=== PATIENT | female | born 1970 | race Caucasian/White ===

== ENCOUNTER 2023-05-02 10:50 | Emergency (ER) | payer OTHER, SELFPAY ==
[2023-05-02 10:56] VITALS: BP 138/71; PULSE 73; RESP 20; TEMP 36.9; O2SAT 96; BMI 58.4
--- NOTE | 2023-05-02 11:08 | PC.NURSE ---
pt wears 2L of O2 at all times. pt arrived to er with her own O2. pt was placed on 2L with wall O2 in er
--- NOTE | 2023-05-02 11:16 | CT_ITS ---
The [address] [address] Patient Name: AVERY POND MRN: [id number] date: 1970 Sex: F Assigned Patient Location: ER Current Patient Location: Accession/Order Number: [id number] Exam Date: 05/02/2023 12:10 Report Date: 05/02/2023 14:12 At the request of: COLE WYNNE Procedure: CT abdomen pelvis w con EXAM: CT abdomen pelvis w con - 05/02/2023. COMPARISON STUDY: CT of the chest with contrast 07/16/2017. HISTORY: gi bleed TECHNIQUE: 3 mm sections were obtained from the lung bases through the pubic symphysis following the administration of intravenous contrast. Coronal and sagittal reconstructed images were obtained. CT ABDOMEN: The patient is morbidly obese. The lower cardiac chambers, posterior mediastinal structures and lung bases demonstrate no acute abnormality. Background diffuse hepatic steatosis is identified. The right hepatic lobe measures 19.4 cm superior to inferior. The gallbladder is surgically absent. Liver, spleen, pancreas, adrenal glands and kidneys demonstrate no acute abnormality. Mild atherosclerotic change of the aorta and its branches without aneurysm or dissection. CT PELVIS: There is atrophy of the pelvic floor musculature with pelvic floor relaxation. Urinary bladder is nearly completely collapsed. Uterus and ovaries are not seen. Chronic fibrofatty changes associated with portions of the large bowel including both colon and rectum are noted. Subcentimeter radiopaque focus within the lumen of the rectum is seen caudally on image #141 of series 3. There are a few scattered colonic diverticula. There is high attenuation debris within the more proximal colon also noted. Bowel pattern is nonobstructive. Chronic fibrofatty mural changes of the distal ileal and terminal ileal segments noted. Tiny umbilical hernia contains fat without bowel. Hepatic, portal, splenic and mesenteric veins are patent. Angulated collapsed small bowel segments within the lower abdomen and pelvis are noted. Small nonenlarged noncalcified retroperitoneal and pelvic nodes are identified incidentally. Significant multilevel lower thoracic and lumbar spondylitic/facet arthritic changes are identified. Facet disease is most apparent at the L4 level. Multilevel lumbar canal stenosis is suggested. No acute osseous abnormality. IMPRESSION: 1. Mild chronic fibrofatty mural changes associated with the distal/terminal ileum as well as large bowel may be indicative of prior episodes of inflammatory bowel disease. 2. Angulated collapsed small bowel segments about the lower abdomen and pelvis may be indicative of intraperitoneal adhesions. No evidence of appendicitis, diverticulitis, bowel obstruction or acute inflammatory bowel disease otherwise. 3. Prior cholecystectomy and hysterectomy. 4. Hepatomegaly with background hepatic steatosis. 5. There is atrophy of the pelvic floor musculature with pelvic floor relaxation. Electronically authenticated by: ALEXA HARPER Date: 05/02/2023 14:12
--- NOTE | 2023-05-02 11:30 | ED.GENADUL1 ---
HPI - General Adult General Chief complaint: Abdominal Pain Stated complaint: Diarrhea Time Seen by Provider: 05/02/23 11:15 Source: patient Mode of arrival: Wheelchair History of Present Illness HPI narrative: patient presents with nausea, mid upper abdominal pain and diarrhea along with decreased appetite and decreased oral intake. No flank pain or urinary symptoms. No fever or chills. She wears oxygen daily. She apparently was evaluated at [facility] last week for chest pain and shortness of breath. She said that she was admitted overnight and then discharged the next day. She said that despite having history of COPD and pulmonary embolism they did not get a cxr or ct scan of the chest. She also said that she had these GI symptoms during admission and they did not prescribe any nausea meds for her at discharge. Related Data Home Medications Medication Instructions Recorded Confirmed apixaban 5 mg (74 tabs) tablets in 5 mg PO BID 05/02/23 05/02/23 a dose pack (Tellme DVT-PE Treat 30D Start) aspirin 81 mg tablet,delayed 81 mg PO DAILY 05/02/23 05/02/23 release budesonide-formoterol HFA 80 2 puff inhalation DAILY 05/02/23 05/02/23 mcg-4.5 mcg/actuation aerosol inhaler (Symbicort) carvedilol 6.25 mg tablet 6.25 mg PO DAILY 05/02/23 05/02/23 ergocalciferol (vitamin D2) 1,250 1,250 mcg PO .weekly 05/02/23 05/02/23 mcg (50,000 unit) capsule furosemide 20 mg tablet 40 mg PO QAM 05/02/23 05/02/23 gabapentin 300 mg capsule 300 mg PO TID 05/02/23 05/02/23 lamotrigine 200 mg tablet 200 mg PO DAILY 05/02/23 05/02/23 levothyroxine 100 mcg tablet 100 mcg PO DAILY 05/02/23 05/02/23 melatonin 5 mg tablet 5 mg PO QPM PRN sleep 05/02/23 05/02/23 quetiapine 200 mg tablet 200 mg PO DAILY 05/02/23 05/02/23 sertraline 100 mg tablet 100 mg PO DAILY 05/02/23 05/02/23 simvastatin 20 mg tablet 20 mg PO QPM 05/02/23 05/02/23 spironolactone 50 mg tablet 50 mg PO DAILY 05/02/23 05/02/23 tizanidine 4 mg tablet 8 mg PO QPM 05/02/23 05/02/23 zonisamide 100 mg capsule 100 mg PO BID 05/02/23 05/02/23 Previous Rx's Medication Instructions Recorded hyoscyamine sulfate 0.125 mg 0.125 mg PO Q6H PRN abdominal pain 05/02/23 sublingual tablet (Levsin/SL) #20 tabs ondansetron 4 mg disintegrating 4 mg PO Q6H PRN nausea and 05/02/23 tablet vomiting #20 tabs Allergies Allergy/AdvReac Type Severity Reaction Status Date / Time No Known Drug Allergies Allergy Verified 05/02/23 10:56 [facility] Medical History (Updated 05/02/23 @ 13:31 by Aaron Wynne) Exam Narrative Exam Narrative: Nurses notes and vital signs reviewed and patient is not hypoxic. afebrile General: Well-appearing and in no apparent distress. Skin: Warm, dry, no pallor noted. No rash. Head: Normocephalic, atraumatic. Neck: Supple, non-tender. no meningismus Eye: Pupils are equal, round and EOMI. No scleral icterus. Ears, Nose, Mouth, and Throat: Oral mucosa is dry Cardiovascular: Regular Rate and Rhythm without murmur, gallop or rub. Respiratory: No accessory muscle use or respiratory distress. Lungs are clear to auscultation, no wheezing, rales or rhonchi Chest Wall: no tenderness Back: No CVA tenderness Musculoskeletal: normal ROM, no calf or popliteal tenderness, no lower extremity edema/swelling GI: Abdomen is soft, non-distended. Normal bowel sounds. morbidly obese so I cannot appreciate masses on palpation. No areas tenderness to palpation despite localizing pain to the epigastrium. No rebound, guarding, or rigidity noted. Neurological: A&O x4. No cranial nerve dysfunction observed. No truncal ataxia. Moves all extremities. Sensation intact. Psychiatric: Cooperative and interactive. Normal mood and affect. Constitutional Vital Signs - 24 hr 05/02/23 10:56 05/02/23 11:03 Temperature 98.4 F Pulse Rate [Monitor] 73 Respiratory Rate 20 Blood Pressure [Left Arm] 138/71 H Pulse Oximetry 96 Oxygen Delivery Method Room Air Nasal Cannula Oxygen Delivery Flow Rate 2 Course Vital Signs Vital signs: Vital Signs Temperature 98.4 F 05/02/23 10:56 Pulse Rate 73 05/02/23 10:56 Respiratory Rate 20 05/02/23 10:56 Blood Pressure 138/71 H 05/02/23 10:56 Pulse Oximetry 96 05/02/23 10:56 Oxygen Delivery Method Room Air 05/02/23 10:56 Temperature 98.4 F 05/02/23 10:56 Pulse Rate 73 05/02/23 10:56 Respiratory Rate 20 05/02/23 10:56 Blood Pressure 138/71 H 05/02/23 10:56 Pulse Oximetry 96 05/02/23 10:56 Oxygen Delivery Method Nasal Cannula 05/02/23 11:03 Oxygen Delivery Flow Rate 2 05/02/23 11:03 Medical Decision Making MDM Narrative Medical decision making narrative: peripheral IV established and blood drawn and sent for testing. Patient was ordered to undergo CT scanning of the abdomen pelvis. She was given normal saline IV fluid, IV Zofran, IV Protonix. I also received a copy of the patient's discharge summary from her visit certificate emergency department and subsequent hospitalization earlier this week. at [facility], the patient had blood testing, EKG, chest x-ray and noncontrast head CT. Her workup was negative and they identified her symptoms as secondary to hypotension from multiple medications that were similarly. They apparently talked her about adjusting her medications and dosing. In our emergency department, the patient had a normal CBC and CMP. Her CT scan of the abdomen pelvis with IV contrast identified inflammatory changes but no obstruction, abscess or other intra-abdominal pathology requiring hospitalization. The patient and were informed of the results, diagnosis and plan for out-patient treatment. She was discharged home with prescriptions for zofran, Levsin and isntructions to maintain a clear liquid diet until her symptoms resolved. She will see her PCP for follow up. Lab Data Lab results reviewed: Yes I reviewed the patient's lab results Labs: Lab Results 05/02/23 05/02/23 Range/Units 11:38 11:48 WBC 11.3 H (4.0-11.0) 10^3/uL RBC 3.71 L (4.20-5.40) 10^6/uL Hgb 11.8 L (12.0-16.0) g/dL Hct 36.2 (36.0-48.0) % MCV 97.6 (81.0-99.0) fL MCH 31.8 (26.7-34.0) pg MCHC 32.6 (29.9-35.2) g/dL RDW 13.5 (11.0-15.0) % Plt Count 352 (150-450) 10^3/uL MPV 9.5 (9.5-13.5) fL Seg Neuts % (Manual) 77.0 Lymphocytes % (Manual) 9.0 L (20.5-60.0) % Monocytes % (Manual) 11.0 (1.7-12.0) % Eosinophils % (Manual) 3.0 (0.9-7.0) % Basophils % (Manual) 0.0 L (0.2-2.0) % Neutrophils # (Manual) 8.70 H (1.4-6.5) 10^3/uL Lymphocytes # (Manual) 1.01 L (1.20-3.80) 10^3/uL Monocytes # (Manual) 1.24 H (0.30-0.80) 10^3/uL Eosinophils # (Manual) 0.33 (0.00-0.70) 10^3/uL Basophils # (Manual) 0.00 (0.00-0.10) 10^3/uL Nucleated RBCs 0 Sodium 141 (136-145) mmol/L Potassium 3.5 (3.5-5.1) mmol/L Chloride 101 (98-107) mmol/L Carbon Dioxide 25.4 (21.0-32.0) mmol/L Anion Gap 18.1 BUN 19.0 H (7.0-18.0) mg/dL Creatinine 2.87 H (0.55-1.02) mg/dL Est GFR ( Amer) 21 L (>=60) Est GFR (Non-Af Amer) 17 L (>=60) BUN/Creatinine Ratio 6.6 Glucose 117 H (74-106) mg/dL Calcium 9.5 (8.5-10.1) mg/dL Total Bilirubin 0.5 (0.2-1.0) mg/dL AST 29 (15-37) U/L ALT 49 (14-59) U/L Alkaline Phosphatase 104 (46-116) U/L Total Protein 9.4 H (6.4-8.2) g/dL Albumin 4.4 (3.4-5.0) g/dL Globulin 5.0 g/dL Albumin/Globulin Ratio 0.[address] abd/pelvis: Attestation: I have reviewed the pertinent imaging results. Radiologist's impression: Patient: Nancy Pond MR#: [id number] : 1970 Acct:[id number] Age/Sex: 52 / F ADM Date: 05/02/23 Loc: ER Attending Dr: Ordering Physician: Aaron Wynne D.O. Date of Service: 05/02/23 Procedure(s): CT abdomen pelvis w con Accession Number(s): [id number] cc: ~ ? [facility] ?? ? [address] [place] [address] ?? ? [place] [address] ? Patient Name: NANCY POND ? MRN: [id number]? ? date: 1970? ? Sex: F Assigned Patient Location: ER Current Patient Location: ED.MAIN Accession/Order Number: [id number] Exam Date: 05/02/2023? 12:10? ? Report Date: 05/02/2023? 13:17 ? At the request of: ANTONIO WYNNE? ? Procedure:? CT abdomen pelvis w con ? Initial impression only. ? IMPRESSION: 1. Mild chronic fibrofatty mural changes associated with the distal/terminal ileum as well as large bowel may be indicative of prior episodes of inflammatory bowel disease. 2. Angulated collapsed small bowel segments about the lower abdomen and pelvis may be indicative of intraperitoneal adhesions. No evidence of appendicitis, diverticulitis, bowel obstruction or acute inflammatory bowel disease otherwise. 3. prior cholecystectomy and hysterectomy. 4. Hepatomegaly with background hepatic steatosis. 5. There is atrophy of the pelvic floor musculature with pelvic floor relaxation. ? ? Electronically authenticated by: ESTELA HARPER ? Date: 05/02/2023? 13:17 Discharge Plan Discharge Chief Complaint: Abdominal Pain Clinical Impression: Abdominal pain Patient Disposition: Home, Self-Care Time of Disposition Decision: 13:31 Prescriptions / Home Meds: New hyoscyamine sulfate [Levsin/SL] 0.125 mg tablet, sublingual 0.125 mg PO Q6H PRN (Reason: abdominal pain) Qty: 20 0RF ondansetron 4 mg tablet,disintegrating 4 mg PO Q6H PRN (Reason: nausea and vomiting) Qty: 20 0RF No Action Eliquis DVT-PE Treat 30D Start 5 mg (74 tabs) tablets,dose pack 5 mg PO BID aspirin 81 mg tablet,delayed release (DR/EC) 81 mg PO DAILY budesonide-formoterol [Symbicort] 80-4.5 mcg/actuation HFA aerosol inhaler 2 puff INHALATION DAILY carvedilol 6.25 mg tablet 6.25 mg PO DAILY ergocalciferol (vitamin D2) 1,250 mcg (50,000 unit) capsule 1,250 mcg PO .weekly furosemide 20 mg tablet 40 mg PO QAM gabapentin 300 mg capsule 300 mg PO TID lamotrigine 200 mg tablet 200 mg PO DAILY levothyroxine 100 mcg tablet 100 mcg PO DAILY melatonin 5 mg tablet 5 mg PO QPM PRN (Reason: sleep) quetiapine 200 mg tablet 200 mg PO DAILY sertraline 100 mg tablet 100 mg PO DAILY simvastatin 20 mg tablet 20 mg PO QPM spironolactone 50 mg tablet 50 mg PO DAILY tizanidine 4 mg tablet 8 mg PO QPM zonisamide 100 mg capsule 100 mg PO BID Instructions: Abdominal Pain (ED) Stand Alone Forms: Portal Instructions Referrals: Denilson Carballo MD [Primary Care Provider] - 1 week
[2023-05-02] MEDS: 0.9 % SODIUM CHLORIDE 1,000 ML 999 ML IV (11:54)
[2023-05-02] MEDS: PANTOPRAZOLE SODIUM 40 MG VIAL IV (11:54)
[2023-05-02] MEDS: ONDANSETRON 4 MG RAPDIS TABLET PO (11:54)
[2023-05-02 12:06] LABS: Hematocrit 36.2 % (36.0-48.0); Hemoglobin 11.8 g/dL (12.0-16.0); Mean Corpuscular HGB Conc 32.6 g/dL (29.9-35.2); Mean Corpuscular Hemoglobin 31.8 pg (26.7-34.0); Mean Corpuscular Volume 97.6 fL (81.0-99.0); Mean Platelet Volume 9.5 fL (9.5-13.5); Nucleated Red Blood Cells 0; Platelet Count 352 10^3/uL (150-450); Red Blood Count 3.71 10^6/uL (4.20-5.40); Red Cell Distribution Width 13.5 % (11.0-15.0); White Blood Count 11.3 10^3/uL (4.0-11.0)
[2023-05-02 12:22] LABS: Alanine Aminotransferase 49 U/L (14-59); Albumin Globulin Ratio 0.9; Albumin Level 4.4 g/dL (3.4-5.0); Alkaline Phosphatase 104 U/L (46-116); Anion Gap 18.1; Aspartate Amino Transferase 29 U/L (15-37); BUN Creatinine Ratio 6.6; Bilirubin Total 0.5 mg/dL (0.2-1.0); Calcium 9.5 mg/dL (8.5-10.1); Carbon Dioxide 25.4 mmol/L (21.0-32.0); Chloride 101 mmol/L (98-107); Estimated GFR (African America 21 (>=60); Estimated GFR (Non-African Ame 17 (>=60); Glucose 117 mg/dL (74-106); Potassium 3.5 mmol/L (3.5-5.1); Sodium 141 mmol/L (136-145); Total Protein 9.4 g/dL (6.4-8.2)
[2023-05-02 12:32] LABS: Eosinophils Absolute Manual 0.33 10^3/uL (0.00-0.70); Lymphocytes Absolute Manual 1.01 10^3/uL (1.20-3.80); Monocytes Absolute Manual 1.24 10^3/uL (0.30-0.80)
== END 2023-05-02 14:02 | disposition home or self-care (01) ==
PROVIDERS: Emergency Provider Emergency Medicine; PCP Family Medicine
DX: R10.9 Unspecified abdominal pain (principal); Z90.49 Acquired absence of other specified parts of digestive tract; Z90.710 Acquired absence of both cervix and uterus; Z99.81 Dependence on supplemental oxygen; J44.9 Chronic obstructive pulmonary disease, unspecified; Z86.711 Personal history of pulmonary embolism; Z79.82 Long term (current) use of aspirin; Z79.890 Hormone replacement therapy; Z79.899 Other long term (current) drug therapy; E66.01 Morbid (severe) obesity due to excess calories; Z68.43 Body mass index [BMI] 50.0-59.9, adult
CPT/HCPCS: 36415; 74177; 80053; 85027; 87507; 96374; 99284; G0328; Q9967

== ENCOUNTER 2023-05-04 14:54 | Outpatient (OUT) | payer OTHER, SELFPAY ==
[2023-05-04 15:19] LABS: Basophils Absolute Auto 0.1 10^3/uL (0.0-0.1); Basophils Percent Auto 0.7 % (0.2-2.0); Eosinophils Absolute Auto 0.3 10^3/uL (0.0-0.7); Eosinophils Percent Auto 3.6 % (0.9-7.0); Hematocrit 35.2 % (36.0-48.0); Hemoglobin 11.3 g/dL (12.0-16.0); Immature Granulocytes Abs Auto 0.02 10^3/uL (0.00-0.03); Immature Granulocytes Pct Auto 0.3 % (0.0-0.5); Lymphocytes Absolute Auto 1.7 10^3/uL (1.2-3.8); Mean Corpuscular HGB Conc 32.1 g/dL (29.9-35.2); Mean Corpuscular Hemoglobin 31.4 pg (26.7-34.0); Mean Corpuscular Volume 97.8 fL (81.0-99.0); Mean Platelet Volume 9.5 fL (9.5-13.5); Monocytes Absolute Auto 0.8 10^3/uL (0.3-0.8); Monocytes Percent Auto 10.2 % (1.7-12.0); Neutrophils Absolute Auto 4.7 10^3/uL (1.4-6.5); Neutrophils Percent Auto 62.2 % (43.0-75.0); Platelet Count 321 10^3/uL (150-450); Red Cell Distribution Width 13.3 % (11.0-15.0); White Blood Count 7.5 10^3/uL (4.0-11.0)
[2023-05-04 15:23] LABS: Erythrocyte Sedimentation Rate 49 mm/hr (<=30)
[2023-05-04 15:40] LABS: Alanine Aminotransferase 50 U/L (14-59); Albumin Level 4.3 g/dL (3.4-5.0); Alkaline Phosphatase 99 U/L (46-116); Aspartate Amino Transferase 34 U/L (15-37); BUN Creatinine Ratio 9.8; Bilirubin Direct 0.1 mg/dL (0.0-0.2); Bilirubin Total 0.5 mg/dL (0.2-1.0); Calcium 9.5 mg/dL (8.5-10.1); Carbon Dioxide 29.6 mmol/L (21.0-32.0); Chloride 101 mmol/L (98-107); Estimated GFR (African America 26 (>=60); Estimated GFR (Non-African Ame 22 (>=60); Glucose 111 mg/dL (74-106); Potassium 3.6 mmol/L (3.5-5.1); Sodium 141 mmol/L (136-145)
[2023-05-04 15:41] LABS: Albumin Globulin Ratio 0.9; Amylase 43 U/L (25-115); C Reactive Protein <0.2 mg/dL (<=1.0); Globulin 4.7 g/dL
== END 2023-05-04 14:55 | disposition home or self-care (01) ==
PROVIDERS: PCP Family Medicine; Visit Provider Family Medicine
DX: R10.9 Unspecified abdominal pain (principal); R53.83 Other fatigue; Z79.899 Other long term (current) drug therapy
CPT/HCPCS: 36415; 80053; 80076; 82150; 83690; 85025; 85652; 86140

== ENCOUNTER 2023-05-13 16:02 | Outpatient (OUT) | payer OTHER, SELFPAY ==
[2023-05-13 16:31] LABS: Basophils Absolute Auto 0.1 10^3/uL (0.0-0.1); Basophils Percent Auto 1.3 % (0.2-2.0); Eosinophils Absolute Auto 0.6 10^3/uL (0.0-0.7); Eosinophils Percent Auto 6.8 % (0.9-7.0); Hematocrit 35.8 % (36.0-48.0); Hemoglobin 11.4 g/dL (12.0-16.0); Immature Granulocytes Abs Auto 0.04 10^3/uL (0.00-0.03); Immature Granulocytes Pct Auto 0.5 % (0.0-0.5); Lymphocytes Absolute Auto 2.6 10^3/uL (1.2-3.8); Lymphocytes Percent Auto 30.5 % (20.5-60.0); Mean Corpuscular HGB Conc 31.8 g/dL (29.9-35.2); Mean Corpuscular Hemoglobin 31.5 pg (26.7-34.0); Mean Corpuscular Volume 98.9 fL (81.0-99.0); Mean Platelet Volume 9.8 fL (9.5-13.5); Monocytes Absolute Auto 0.8 10^3/uL (0.3-0.8); Monocytes Percent Auto 9.7 % (1.7-12.0); Neutrophils Absolute Auto 4.3 10^3/uL (1.4-6.5); Neutrophils Percent Auto 51.2 % (43.0-75.0); Platelet Count 390 10^3/uL (150-450); Red Blood Count 3.62 10^6/uL (4.20-5.40); Red Cell Distribution Width 12.6 % (11.0-15.0); White Blood Count 8.5 10^3/uL (4.0-11.0)
[2023-05-13 16:32] LABS: Bilirubin Urine NEGATIVE (NEGATIVE); Blood Urine NEGATIVE (NEGATIVE); Clarity Urine CLEAR (CLEAR); Color Urine LT. YELLOW (YELLOW); Glucose Urine UA NEGATIVE (NEGATIVE); Ketones Urine NEGATIVE (NEGATIVE); Leukocyte Esterase Urine NEGATIVE (NEGATIVE); Nitrite Urine NEGATIVE (NEGATIVE); Protein Urine NEGATIVE (NEG/TRACE); Urobilinogen Urine 0.2 EU/dL (0.2-1.0); pH Urine 5.5 (5.0-9.0)
[2023-05-13 16:37] LABS: Bacteria Urine NONE SEEN #/HPF (NONE SEEN); Crystals Seen? None Seen #/HPF (None Seen); Mucus Urine NONE SEEN (NONE SEEN); RBC Urine 0-2 #/HPF (0-2); Squamous Epithelial Cell Urine FEW #/LPF (NONE/RARE); WBC Urine 0-2 #/HPF (NONE SEEN)
[2023-05-13 16:38] LABS: Cast Seen? SEEN #/LPF (NONE SEEN); Hyaline Casts Urine RARE
[2023-05-13 17:04] LABS: Alanine Aminotransferase 32 U/L (14-59); Albumin Globulin Ratio 0.9; Albumin Level 4.1 g/dL (3.4-5.0); Alkaline Phosphatase 94 U/L (46-116); Anion Gap 13.4; Aspartate Amino Transferase 16 U/L (15-37); BUN Creatinine Ratio 15.3; Calcium 9.3 mg/dL (8.5-10.1); Carbon Dioxide 30.2 mmol/L (21.0-32.0); Chloride 99 mmol/L (98-107); Estimated GFR (African America 27 (>=60); Estimated GFR (Non-African Ame 22 (>=60); Globulin 4.7 g/dL; Glucose 119 mg/dL (74-106); Potassium 4.6 mmol/L (3.5-5.1); Sodium 138 mmol/L (136-145); Total Protein 8.8 g/dL (6.4-8.2)
== END 2023-05-13 16:03 | disposition home or self-care (01) ==
LOC: LAB 16:03
PROVIDERS: PCP Family Medicine; Visit Provider Family Medicine
DX: R10.9 Unspecified abdominal pain (principal); R53.83 Other fatigue; Z79.899 Other long term (current) drug therapy; N28.9 Disorder of kidney and ureter, unspecified; E86.0 Dehydration; I10 Essential (primary) hypertension
CPT/HCPCS: 36415; 80053; 80076; 81001; 82150; 83690; 83880; 85025; 85652; 86140; 87086

== ENCOUNTER 2023-06-11 10:27 | Outpatient (OUT) | payer OTHER, SELFPAY ==
--- NOTE | 2023-06-11 10:37 | US_ITS ---
The [place] [id number] Patient Name: AVERY POND MRN: [id number] date: 1970 Sex: F Assigned Patient Location: LAB Current Patient Location: LAB Accession/Order Number: [id number] Exam Date: 06/11/2023 10:42 Report Date: 06/11/2023 15:14 At the request of: OLLIE JANG Procedure: US venous doppler LE BI EXAMINATION: US venous doppler LE BI HISTORY: Edema R60.9 COMPARISON: No relevant comparison available. FINDINGS: REGION: Bilateral lower extremities THROMBI: None. Posterior tibial and peroneal veins are not well seen bilaterally due to patient body habitus. COMPRESSIBILITY: Normal compressibility. FLOW: Normal waveform and antegrade flow between 5 and 20 cm/s. OTHER: None. US/US venous doppler LE BI IMPRESSION: 1. No deep vein thrombus within the right or left lower extremity. Electronically authenticated by: SOUTH INIGUEZ Date: 06/11/2023 15:14
[2023-06-11 10:48] LABS: Basophils Percent Auto 0.6 % (0.2-2.0); Eosinophils Absolute Auto 0.4 10^3/uL (0.0-0.7); Hematocrit 29.5 % (36.0-48.0); Hemoglobin 9.4 g/dL (12.0-16.0); Immature Granulocytes Abs Auto 0.09 10^3/uL (0.00-0.03); Immature Granulocytes Pct Auto 1.3 % (0.0-0.5); Mean Corpuscular HGB Conc 31.9 g/dL (29.9-35.2); Mean Corpuscular Hemoglobin 31.6 pg (26.7-34.0); Mean Corpuscular Volume 99.3 fL (81.0-99.0); Mean Platelet Volume 9.2 fL (9.5-13.5); Monocytes Absolute Auto 0.8 10^3/uL (0.3-0.8); Monocytes Percent Auto 10.8 % (1.7-12.0); Neutrophils Absolute Auto 3.8 10^3/uL (1.4-6.5); Neutrophils Percent Auto 53.3 % (43.0-75.0); Platelet Count 278 10^3/uL (150-450); Red Blood Count 2.97 10^6/uL (4.20-5.40); Red Cell Distribution Width 13.5 % (11.0-15.0)
[2023-06-11 12:01] LABS: Alanine Aminotransferase 21 U/L (14-59); Albumin Globulin Ratio 0.8; Albumin Level 3.6 g/dL (3.4-5.0); Alkaline Phosphatase 78 U/L (46-116); Anion Gap 13.9; Aspartate Amino Transferase 10 U/L (15-37); BUN Creatinine Ratio 10.5; Bilirubin Total 1.1 mg/dL (0.2-1.0); Calcium 9.3 mg/dL (8.5-10.1); Carbon Dioxide 27.6 mmol/L (21.0-32.0); Chloride 103 mmol/L (98-107); Estimated GFR (African America 28 (>=60); Estimated GFR (Non-African Ame 23 (>=60); Globulin 4.3 g/dL; Glucose 115 mg/dL (74-106); Potassium 4.5 mmol/L (3.5-5.1); Sodium 140 mmol/L (136-145); Thyroid Stimulating Hormone 4.668 uIU/mL (0.358-3.740); Total Protein 7.9 g/dL (6.4-8.2)
== END 2023-06-11 10:28 | disposition home or self-care (01) ==
LOC: LAB 10:27
PROVIDERS: PCP Family Medicine; Visit Provider Family Medicine
DX: R60.9 Edema, unspecified (principal); I11.0 Hypertensive heart disease with heart failure; I50.9 Heart failure, unspecified
CPT/HCPCS: 36415; 80053; 83880; 84439; 84443; 85025; 93970

== ENCOUNTER 2023-06-30 12:35 | Emergency (ER) | payer OTHER, SELFPAY ==
[2023-06-30] VITALS (16 sets, daily range): BP systolic 143; BP diastolic 77; PULSE 62–100; RESP 13–31; TEMP 36.8; O2SAT 94; BMI 58.9
--- NOTE | 2023-06-30 13:16 | ECG_ITS ---
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
[2023-06-30] MEDS: 0.9 % SODIUM CHLORIDE 1,000 ML 999 ML IV (13:32)
[2023-06-30] MEDS: ONDANSETRON PF 4 MG/2 ML VIAL IV (13:33)
[2023-06-30] MEDS: HYOSCYAMINE SULFATE 0.125 MG TAB.SUBL SL (13:33)
--- NOTE | 2023-06-30 13:33 | ED_ITS ---
HPI - General Adult General Chief complaint: Weakness Stated complaint: VOMITING, CHILLS Time Seen by Provider: 06/30/23 13:09 Source: patient Mode of arrival: Wheelchair Limitations: no limitations History of Present Illness HPI narrative: patient is a 53-year-old female who presents to the emergency department for six day history of generalized weakness, nausea, decreased oral intake and decreased urination. She denies any objective fevers, vomiting. She states she had loose stool yesterday with no blood. She has no history of colitis, diverticulitis or inflammatory bowel conditions that she is aware of. She initially states that she has had no previous abdominal surgeries but on further questioning states she has had a cholecystectomy and hysterectomy. She also initially states that she has not had any recent travel or antibiotics but then remembers that she is currently taking amoxicillin that was prescribed by her dentist last week. No sick contacts in the home. She denies any dysuria or hematuria. No medications taken prior to arrival. she states in the last two days she has developed discomfort in the mid abdomen without radiation. Related Data Home Medications Medication Instructions Recorded Confirmed apixaban 5 mg (74 tabs) tablets in 5 mg PO BID 05/02/23 05/02/23 a dose pack ([place] DVT-PE Treat 30D Start) aspirin 81 mg tablet,delayed 81 mg PO DAILY 05/02/23 05/02/23 release budesonide-formoterol HFA 80 2 puff inhalation DAILY 05/02/23 05/02/23 mcg-4.5 mcg/actuation aerosol inhaler (Symbicort) carvedilol 6.25 mg tablet 6.25 mg PO DAILY 05/02/23 05/02/23 ergocalciferol (vitamin D2) 1,250 1,250 mcg PO .weekly 05/02/23 05/02/23 mcg (50,000 unit) capsule furosemide 20 mg tablet 40 mg PO QAM 05/02/23 05/02/23 gabapentin 300 mg capsule 300 mg PO TID 05/02/23 05/02/23 lamotrigine 200 mg tablet 200 mg PO DAILY 05/02/23 05/02/23 levothyroxine 100 mcg tablet 100 mcg PO DAILY 05/02/23 05/02/23 melatonin 5 mg tablet 5 mg PO QPM PRN sleep 05/02/23 05/02/23 quetiapine 200 mg tablet 200 mg PO DAILY 05/02/23 05/02/23 sertraline 100 mg tablet 100 mg PO DAILY 05/02/23 05/02/23 simvastatin 20 mg tablet 20 mg PO QPM 05/02/23 05/02/23 spironolactone 50 mg tablet 50 mg PO DAILY 05/02/23 05/02/23 tizanidine 4 mg tablet 8 mg PO QPM 05/02/23 05/02/23 zonisamide 100 mg capsule 100 mg PO BID 05/02/23 05/02/23 Previous Rx's Medication Instructions Recorded hyoscyamine sulfate 0.125 mg 0.125 mg PO Q6H PRN abdominal pain 05/02/23 sublingual tablet (Levsin/SL) #20 tabs ondansetron 4 mg disintegrating 4 mg PO Q6H PRN nausea and 05/02/23 tablet vomiting #20 tabs hyoscyamine sulfate 0.125 mg 0.125 mg PO Q6H PRN abdominal pain 06/30/23 tablet (Levsin) #12 tabs ondansetron 4 mg disintegrating 4 mg PO Q6H PRN nausea and 06/30/23 tablet vomiting #12 tabs Allergies Allergy/AdvReac Type Severity Reaction Status Date / Time No Known Drug Allergies Allergy Verified 05/02/23 10:56 Review of Systems ROS Constitutional Denies: fever or chills Ears, nose, mouth, and throat Denies: throat pain or neck pain Cardiovascular Denies: chest pain Respiratory Denies: shortness of breath or cough Gastrointestinal Reports: abdominal pain, nausea and diarrhea; Denies: vomiting Genitourinary Reports: decreased urine ouput; Denies: painful urination Musculoskeletal Denies: back pain or neck pain Integumentary/Breast Denies: rash Neurological Denies: headache PFSH PFSH Medical History (Updated 06/30/23 @ 15:29 by BURKE Butcher) Social History Smoking status: Never smoker Exam Narrative Exam Narrative: Gen.: Awake, alert, in no distress Head: Normocephalic, atraumatic ENT: Moist mucous membranes Respiratory: No respiratory distress, lungs clear bilaterally Cardio: Regular rate and rhythm Gastrointestinal: Abdomen is soft, obese, nondistended and nontender to palpation Extremities: Moves extremities equally, no injuries noted Psych: Normal mood and affect Neuro: No focal neuro deficit Skin: Warm, dry, intact Constitutional Vital Signs, click to edit/add: Last Vital Signs Temp 98.2 F 06/30/23 12:47 Pulse 63 06/30/23 12:47 Resp 20 06/30/23 12:47 BP 143/77 H 06/30/23 12:47 Pulse Ox 94 L 06/30/23 12:47 O2 Del Method Room Air 06/30/23 14:51 Course Vital Signs Vital signs: Vital Signs Temperature 98.2 F 06/30/23 12:47 Pulse Rate 63 06/30/23 12:47 Respiratory Rate 20 06/30/23 12:47 Blood Pressure 143/77 H 06/30/23 12:47 Pulse Oximetry 94 L 06/30/23 12:47 Oxygen Delivery Method Room Air 06/30/23 12:47 Temperature 98.2 F 06/30/23 12:47 Pulse Rate 63 06/30/23 12:47 Respiratory Rate 06/30/23 12:47 Blood Pressure 143/77 H 06/30/23 12:47 Pulse Oximetry 94 L 06/30/23 12:47 Oxygen Delivery Method Room Air 06/30/23 14:51 Medical Decision Making MDM Narrative Medical decision making narrative: patient treated with IV fluids, Zofran, Levsin. She had symptoms of emesis in the Emergency Room, abdomen is soft and benign. Labs show stable chronic kidney disease and stable anemia with no evidence of acute leukocytosis or bandemia. Urine specimen is negative with no evidence of severe dehydration and LFTs, lipase are unremarkable as well. EKG and troponin with no abnormalities. Patient had no episodes of diarrhea in the Emergency Room. Her CT scan shows no evidence of acute abnormalities in the abdomen. She will be discharged home with symptomatic treatment for abdominal discomfort, likely viral etiology. Return to the Emergency Room if symptoms change oor worsen. If diarrhea persists, patient was counseled she should have a stool culture performed with her PCP. Zofran and Levsin given for home. Medical Records Medical records reviewed: Yes I reviewed the patient's medical records Lab Data Lab results reviewed: Yes I reviewed the patient's lab results Labs: Lab Results 06/30/23 06/30/23 Range/Units 13:33 14:44 WBC 9.3 (4.0-11.0) 10^3/uL RBC 3.45 L (4.20-5.40) 10^6/uL Hgb 10.9 L (12.0-16.0) g/dL Hct 33.6 L (36.0-48.0) % MCV 97.4 (81.0-99.0) fL MCH 31.6 (26.7-34.0) pg MCHC 32.4 (29.9-35.2) g/dL RDW 13.7 (11.0-15.0) % Plt Count 319 (150-450) 10^3/uL MPV 9.9 (9.5-13.5) fL Neut % (Auto) 66.3 (43.0-75.0) % Lymph % (Auto) 19.4 L (20.5-60.0) % [place] % (Auto) 10.2 (1.7-12.0) % Eos % (Auto) 2.3 (0.9-7.0) % Baso % (Auto) 0.8 (0.2-2.0) % Neut # (Auto) 6.2 (1.4-6.5) 10^3/uL Lymph # (Auto) 1.8 (1.2-3.8) 10^3/uL [place] # (Auto) 1.0 H (0.3-0.8) 10^3/uL Eos # (Auto) 0.2 (0.0-0.7) 10^3/uL Baso # (Auto) 0.1 (0.0-0.1) 10^3/uL Abs Immat Gran (auto) 0.09 H (0.00-0.03) 10^3/uL Imm/Tot Granulo (auto) 1.0 H (0.0-0.5) % Sodium 142 (136-145) mmol/L Potassium 3.7 (3.5-5.1) mmol/L Chloride 103 (98-107) mmol/L Carbon Dioxide 27.7 (21.0-32.0) mmol/L Anion Gap 15.0 BUN 20.0 H (7.0-18.0) mg/dL Creatinine 2.58 H (0.55-1.02) mg/dL Est GFR ( Amer) 23 L (>=60) Est GFR (Non-Af Amer) 19 L (>=60) BUN/Creatinine Ratio 7.8 Glucose 111 H (74-106) mg/dL Lactate 1.0 (0.4-2.0) mmol/L Calcium 9.4 (8.5-10.1) mg/dL Total Bilirubin 0.4 (0.2-1.0) mg/dL AST 17 (15-37) U/L ALT 31 (14-59) U/L Alkaline Phosphatase 87 (46-116) U/L Troponin I High Sens 25.0 (4.0-51.3) pg/mL Total Protein 8.6 H (6.4-8.2) g/dL Albumin 4.1 (3.4-5.0) g/dL Globulin 4.5 g/dL Albumin/Globulin Ratio 0.9 Lipase 121.0 (73.0-393.0) U/L Urine Color Lt. yellow (YELLOW) Urine Clarity Clear (CLEAR) Urine pH 5.5 (5.0-9.0) Ur Specific [place] 1.020 (1.005-1.025) Urine Protein Negative (NEG/TRACE) mg/dL Urine Glucose (UA) Negative (NEGATIVE) mg/dL Urine Ketones Negative (NEGATIVE) mg/dL Urine Occult Blood Negative (NEGATIVE) Urine Nitrite Negative (NEGATIVE) Urine Bilirubin Negative (NEGATIVE) Urine Urobilinogen 0.2 (0.2-1.0) EU/dL Ur Leukocyte Esterase Negative (NEGATIVE) Imaging Data CT scan - abdomen: Attestation: I have reviewed the pertinent imaging results. Radiologist's impression: Procedure: CT abdomen pelvis wo con CT abdomen pelvis wo con, 06/30/2023 2:23 PM EDT, [place]001 INDICATION: Abdominal pain COMPARISON: CT from 05/02/2023. TECHNIQUE: Helical images were obtained without intravenous contrast. Coronal and sagittal reconstructions were also generated. Dose reduction techniques were achieved by using automated exposure control and/or adjustment of mA and/or kV according to patient size and/or use of iterative reconstruction technique. Oral contrast: None. FINDINGS: The visualized portions of the lower thorax appear unremarkable. The liver is enlarged at 18 cm in length. There is decreased density of the hepatic parenchyma most consistent with fatty infiltration. The gallbladder has been removed. The pancreas is within normal limits. The spleen appears unremarkable. The adrenal glands appear unremarkable. The kidneys and ureters are within normal limits. The vasculature appears unremarkable. There is no pathologic retroperitoneal adenopathy. The urinary bladder appears unremarkable. No pelvic mass is identified. There is no evidence of pathologic pelvic adenopathy. There is no evidence of free air or free fluid. There is no evidence of bowel obstruction. There is apparent bowel wall thickening involving portions of the transverse, descending and sigmoid colon. The appendix is not definitely visualized. 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 The osseous structures appear unremarkable. IMPRESSION: There is no evidence of obstruction, free air or other acute intra-abdominal process. Apparent wall thickening is again seen within portions of the colon, nonspecific. Hepatomegaly and hepatic steatosis are again noted. Electronically authenticated by: ADA QUARLES Date: 06/30/2023 14:47 ECG Data Attestation: I personally reviewed and interpreted this ECG as follows: (normal sinus rhythm at a rate of sixty-one, first-degree AV block with no acute ST elevation or ectopy. EKG reviewed by attending physician) Discharge Plan Discharge Chief Complaint: Weakness Clinical Impression: Abdominal pain Patient Disposition: Home, Self-Care Time of Disposition Decision: 15:29 Condition: Good Prescriptions / Home Meds: New hyoscyamine sulfate [Levsin] 0.125 mg tablet 0.125 mg PO Q6H PRN (Reason: abdominal pain) Qty: 12 0RF ondansetron 4 mg tablet,disintegrating 4 mg PO Q6H PRN (Reason: nausea and vomiting) Qty: 12 0RF No Action [place] DVT-PE Treat 30D Start 5 mg (74 tabs) tablets,dose pack 5 mg PO BID aspirin 81 mg tablet,delayed release (DR/EC) 81 mg PO DAILY budesonide-formoterol [Symbicort] 80-4.5 mcg/actuation HFA aerosol inhaler 2 puff INHALATION DAILY carvedilol 6.25 mg tablet 6.25 mg PO DAILY ergocalciferol (vitamin D2) 1,250 mcg (50,000 unit) capsule 1,250 mcg PO .weekly furosemide 20 mg tablet 40 mg PO QAM gabapentin 300 mg capsule 300 mg PO TID lamotrigine 200 mg tablet 200 mg PO DAILY levothyroxine 100 mcg tablet 100 mcg PO DAILY melatonin 5 mg tablet 5 mg PO QPM PRN (Reason: sleep) quetiapine 200 mg tablet 200 mg PO DAILY sertraline 100 mg tablet 100 mg PO DAILY simvastatin 20 mg tablet 20 mg PO QPM spironolactone 50 mg tablet 50 mg PO DAILY tizanidine 4 mg tablet 8 mg PO QPM zonisamide 100 mg capsule 100 mg PO BID hyoscyamine sulfate [Levsin/SL] 0.125 mg tablet, sublingual 0.125 mg PO Q6H PRN (Reason: abdominal pain) Qty: 20 0RF ondansetron 4 mg tablet,disintegrating 4 mg PO Q6H PRN (Reason: nausea and vomiting) Qty: 20 0RF Instructions: Abdominal Pain (ED) Stand Alone Forms: Portal Instructions Referrals: Denilson Carballo MD [Primary Care Provider] - 1 week
[2023-06-30 14:03] LABS: Alanine Aminotransferase 31 U/L (14-59); Albumin Globulin Ratio 0.9; Albumin Level 4.1 g/dL (3.4-5.0); Alkaline Phosphatase 87 U/L (46-116); Aspartate Amino Transferase 17 U/L (15-37); BUN Creatinine Ratio 7.8; Basophils Absolute Auto 0.1 10^3/uL (0.0-0.1); Basophils Percent Auto 0.8 % (0.2-2.0); Bilirubin Total 0.4 mg/dL (0.2-1.0); Calcium 9.4 mg/dL (8.5-10.1); Carbon Dioxide 27.7 mmol/L (21.0-32.0); Chloride 103 mmol/L (98-107); Eosinophils Absolute Auto 0.2 10^3/uL (0.0-0.7); Eosinophils Percent Auto 2.3 % (0.9-7.0); Estimated GFR (African America 23 (>=60); Estimated GFR (Non-African Ame 19 (>=60); Globulin 4.5 g/dL; Glucose 111 mg/dL (74-106); Hematocrit 33.6 % (36.0-48.0); Hemoglobin 10.9 g/dL (12.0-16.0); Immature Granulocytes Abs Auto 0.09 10^3/uL (0.00-0.03); Lymphocytes Absolute Auto 1.8 10^3/uL (1.2-3.8); Lymphocytes Percent Auto 19.4 % (20.5-60.0); Mean Corpuscular HGB Conc 32.4 g/dL (29.9-35.2); Mean Corpuscular Hemoglobin 31.6 pg (26.7-34.0); Mean Corpuscular Volume 97.4 fL (81.0-99.0); Mean Platelet Volume 9.9 fL (9.5-13.5); Monocytes Percent Auto 10.2 % (1.7-12.0); Neutrophils Absolute Auto 6.2 10^3/uL (1.4-6.5); Neutrophils Percent Auto 66.3 % (43.0-75.0); Platelet Count 319 10^3/uL (150-450); Potassium 3.7 mmol/L (3.5-5.1); Red Blood Count 3.45 10^6/uL (4.20-5.40); Red Cell Distribution Width 13.7 % (11.0-15.0); Sodium 142 mmol/L (136-145); Total Protein 8.6 g/dL (6.4-8.2); White Blood Count 9.3 10^3/uL (4.0-11.0)
--- NOTE | 2023-06-30 14:28 | CT_ITS ---
[address] [address] Patient Name: AVERY POND MRN: [id number] date: 1970 Sex: F Assigned Patient Location: ER Current Patient Location: ER Accession/Order Number: [id number] Exam Date: 06/30/2023 14:23 Report Date: 06/30/2023 14:47 At the request of: LOUIS JEWELL Procedure: CT abdomen pelvis wo con CT abdomen pelvis wo con, 06/30/2023 2:23 PM EDT, [facility]001 INDICATION: Abdominal pain COMPARISON: CT from 05/02/2023. TECHNIQUE: Helical images were obtained without intravenous contrast. Coronal and sagittal reconstructions were also generated. Dose reduction techniques were achieved by using automated exposure control and/or adjustment of mA and/or kV according to patient size and/or use of iterative reconstruction technique. Oral contrast: None. FINDINGS: The visualized portions of the lower thorax appear unremarkable. The liver is enlarged at 18 cm in length. There is decreased density of the hepatic parenchyma most consistent with fatty infiltration. The gallbladder has been removed. The pancreas is within normal limits. The spleen appears unremarkable. The adrenal glands appear unremarkable. The kidneys and ureters are within normal limits. The vasculature appears unremarkable. There is no pathologic retroperitoneal adenopathy. The urinary bladder appears unremarkable. No pelvic mass is identified. There is no evidence of pathologic pelvic adenopathy. There is no evidence of free air or free fluid. There is no evidence of bowel obstruction. There is apparent bowel wall thickening involving portions of the transverse, descending and sigmoid colon. The appendix is not definitely visualized. 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 The osseous structures appear unremarkable. CT/CT abdomen pelvis wo con IMPRESSION: There is no evidence of obstruction, free air or other acute intra-abdominal process. Apparent wall thickening is again seen within portions of the colon, nonspecific. Hepatomegaly and hepatic steatosis are again noted. Electronically authenticated by: ADA QUARLES Date: 06/30/2023 14:47
[2023-06-30 15:18] LABS: Bilirubin Urine NEGATIVE (NEGATIVE); Blood Urine NEGATIVE (NEGATIVE); Clarity Urine CLEAR (CLEAR); Color Urine LT. YELLOW (YELLOW); Glucose Urine UA NEGATIVE (NEGATIVE); Ketones Urine NEGATIVE (NEGATIVE); Leukocyte Esterase Urine NEGATIVE (NEGATIVE); Nitrite Urine NEGATIVE (NEGATIVE); Protein Urine NEGATIVE (NEG/TRACE); Urobilinogen Urine 0.2 EU/dL (0.2-1.0); pH Urine 5.5 (5.0-9.0)
[2023-06-30 15:25] LABS: Urine Microscopic Indicated NO
[2023-06-30] MEDS: ACETAMINOPHEN 325 MG TABLET 650 MG PO (15:34)
== END 2023-06-30 15:41 | disposition home or self-care (01) ==
PROVIDERS: Physician Assistant; Emergency Provider Emergency Medicine Emergency Medical Services; PCP Family Medicine
DX: R10.9 Unspecified abdominal pain (principal); D64.9 Anemia, unspecified; N18.9 Chronic kidney disease, unspecified; Z90.49 Acquired absence of other specified parts of digestive tract; Z90.710 Acquired absence of both cervix and uterus; Z79.82 Long term (current) use of aspirin; Z79.899 Other long term (current) drug therapy; Z79.890 Hormone replacement therapy
CPT/HCPCS: 36415; 74176; 80053; 81003; 83605; 83690; 84484; 85025; 93005; 96374; 99285

== ENCOUNTER 2024-05-12 12:41 | Outpatient (OUT) | payer OTHER, SELFPAY | END 2024-05-12 12:42 | disposition home or self-care (01) | LOC: PST 12:41 | PROVIDERS: PCP Family Medicine; Visit Provider Surgery | DX: Z01.818 Encounter for other preprocedural examination (principal); Z12.11 Encounter for screening for malignant neoplasm of colon; Z80.0 Family history of malignant neoplasm of digestive organs ==

== ENCOUNTER 2024-05-18 07:48 | Day surgery (SDC) | payer OTHER, SELFPAY ==
--- NOTE | 2024-05-18 07:07 | PM.GSPRC ---
Date of procedure: 05/18/24 Indications for Procedure: Screening for cancer Family history of colon cancer in mother Pre-op diagnosis: Screening for cancer/family history of colon cancer in mother Post-op diagnosis: other (Normal colonoscopy) Procedure: colonoscopy Findings: Normal Anesthesia: MAC Surgeon: Ivan Freeman Procedure Summary: PROCEDURE: The patient was taken to the Endoscopy Suite, placed in the left lateral recumbent position, given IV sedation as above. A rectal digital exam was performed. The sphincter tone was found to be normal. No rectal masses were appreciated. The Olympus video colonoscope was advanced under direct visualization to the rectum, sigmoid colon, descending colon, transverse colon and ascending colon to the ileocecal valve. The underside of the valve was seen. Cecum was visualized. The procedure was difficult due to the patient's body habitus and pressure had to be placed on the abdomen to get into the cecum. The scope was slowly withdrawn with air being desufflated as it was withdrawn. No gross tumors, polyps or diverticula were seen. The patient tolerated the procedure well and went to the Recovery Area in satisfactory condition. I recommend the patient return for screening colonoscopy in 5 years due to family history of colon cancer unless problems. Estimated blood loss (mL): 0 Complications: No Pathology: none sent Condition: stable Disposition: PACU
[2024-05-18 08:15] VITALS: BP 176/98; PULSE 100; TEMP 36.5; O2SAT 94; BMI 43.2
[2024-05-18] MEDS: LACTATED RINGER'S SOLUTION 1,000 ML 50 ML IV (08:42)
[2024-05-18] MEDS: LABETALOL HCL 20 MG/4 ML SYRINGE 10 MG IVP (08:42)
--- NOTE | 2024-05-18 09:05 | PC.NURSE ---
PATIENT DID NOT TAKE ORAL MEDS FOR BLOOD PRESSURE DIRECTED . UPON ARRIVAL BLOOD PRESSURE WAS ELEVATED. sarah MONROY ORDERED 10 MG OF LABETALOL IV WHICH WAS GIVEN AT 0842. BLOOD RESSURE DID COME DOWN TO 172/100
[2024-05-18 09:24] VITALS: BP 120/97; PULSE 83; TEMP 36.6; O2SAT 91
[2024-05-18 09:39] VITALS: BP 142/92; PULSE 83; O2SAT 96
[2024-05-18 09:54] VITALS: BP 142/100; PULSE 85; O2SAT 92
== END 2024-05-18 09:54 | disposition home or self-care (01) ==
PROVIDERS: PCP Family Medicine; Visit Provider Surgery
PROC: (CPT 811; principal; 2024-05-18 08:45)
DX: Z12.11 Encounter for screening for malignant neoplasm of colon (principal); Z80.0 Family history of malignant neoplasm of digestive organs; Z86.711 Personal history of pulmonary embolism; Z79.01 Long term (current) use of anticoagulants; Z99.81 Dependence on supplemental oxygen; Z90.49 Acquired absence of other specified parts of digestive tract; Z90.710 Acquired absence of both cervix and uterus; G47.33 Obstructive sleep apnea (adult) (pediatric); J44.9 Chronic obstructive pulmonary disease, unspecified; R06.00 Dyspnea, unspecified; E78.5 Hyperlipidemia, unspecified; I10 Essential (primary) hypertension; Z86.718 Personal history of other venous thrombosis and embolism; M06.9 Rheumatoid arthritis, unspecified
CPT/HCPCS: 45378; J1290; J2704